=== PATIENT | female | born 1965 | race Caucasian/White ===

== ENCOUNTER 2017-10-15 14:01 | Emergency (ER) | payer MEDICAID ==
[~2017-10-15] VITALS: Ht 167.6 cm; Wt 74.0 kg
[~2017-10-15 14:01] MED LIST: AMOX-580 PO; CAPS60CR6 TP; GABA-532 PO
[2017-10-15 14:07] VITALS: BP 115/78
== END 2017-10-15 14:48 | disposition home or self-care (01) ==
LOC: ER 14:01
DX: Z02.1 Encounter for pre-employment examination (principal); Z90.710 Acquired absence of both cervix and uterus; Z98.890 Other specified postprocedural states; Z56.0 Unemployment, unspecified; Z88.6 Allergy status to analgesic agent; Z88.5 Allergy status to narcotic agent
CPT/HCPCS: 99281

== ENCOUNTER 2018-02-11 08:22 | Emergency (ER) | payer MEDICAID ==
[~2018-02-11] VITALS: Ht 167.6 cm; Wt 68.2 kg
[~2018-02-11 08:22] MED LIST changes: -AMOX-580 PO
[2018-02-11 08:24] VITALS: BP 115/73
[2018-02-11] MEDS ORDERED: ROBCFL PO (10:31)
[2018-02-11] MEDS ORDERED: TAM75C PO (10:31)
== END 2018-02-11 10:53 | disposition home or self-care (01) ==
LOC: ER 08:23
DX: B34.9 Viral infection, unspecified (principal); F17.200 Nicotine dependence, unspecified, uncomplicated; Z56.0 Unemployment, unspecified; Z90.710 Acquired absence of both cervix and uterus; Z88.6 Allergy status to analgesic agent; Z79.899 Other long term (current) drug therapy
CPT/HCPCS: 36415; 71045; 87502; 87503; 99284

== ENCOUNTER 2018-02-14 19:50 | Emergency (ER) | payer MEDICAID ==
[~2018-02-14] VITALS: Ht 167.6 cm; Wt 72.7 kg
[~2018-02-14 19:50] MED LIST changes: +ROBCFL PO; +TAM75C PO
[2018-02-14 20:04] VITALS: BP 126/65
== END 2018-02-14 21:17 | disposition home or self-care (01) ==
LOC: ER 19:50
DX: Z00.8 Encounter for other general examination (principal); Z90.710 Acquired absence of both cervix and uterus; Z98.890 Other specified postprocedural states; Z88.6 Allergy status to analgesic agent; Z88.5 Allergy status to narcotic agent; Z79.899 Other long term (current) drug therapy; Z79.2 Long term (current) use of antibiotics; Z56.0 Unemployment, unspecified
CPT/HCPCS: 99281

== ENCOUNTER 2020-01-18 09:17 | Emergency (ER) | payer MEDICAID ==
[~2020-01-18] VITALS: Ht 165.1 cm; Wt 80.7 kg
[~2020-01-18 09:17] MED LIST changes: -ROBCFL PO; -TAM75C PO
[2020-01-18 09:19] VITALS: BP 104/77
--- NOTE | 2020-01-18 11:05 | NUR ---
Attempted to call patient back for the third time, Called patients listed phone number and left a voice mail. Dr. Key aware.
== END 2020-01-18 11:09 | disposition left against medical advice (07) ==
LOC: ER 09:17
DX: T20.50XA Corrosion of first degree of head, face, and neck, unspecified site, initial encounter (principal); T22.50XA Corrosion of first degree of shoulder and upper limb, except wrist and hand unspecified site, initial encounter; T32.0 Corrosions involving less than 10% of body surface; Z53.21 Procedure and treatment not carried out due to patient leaving prior to being seen by health care provider; X08.8XXA Exposure to other specified smoke, fire and flames, initial encounter; Y93.89 Activity, other specified; Y92.89 Other specified places as the place of occurrence of the external cause; Y99.8 Other external cause status

== ENCOUNTER 2021-03-05 19:25 | Emergency (ER) | payer MEDICAID ==
[~2021-03-05] VITALS: Ht 162.6 cm; Wt 79.5 kg
[2021-03-05 19:37] VITALS: BP 127/84
[2021-03-05] MEDS ORDERED: ALBU6.7H9 INH (19:42)
[2021-03-05] MEDS ORDERED: BUDE180A INH (19:42)
== END 2021-03-05 20:31 | disposition home or self-care (01) ==
LOC: ER 19:25
DX: U07.1 COVID-19 (principal); J06.9 Acute upper respiratory infection, unspecified; R51.9 Headache, unspecified; F17.200 Nicotine dependence, unspecified, uncomplicated; Z90.710 Acquired absence of both cervix and uterus; Z98.890 Other specified postprocedural states; Z72.89 Other problems related to lifestyle; Z56.0 Unemployment, unspecified; Z88.6 Allergy status to analgesic agent; Z88.8 Allergy status to other drugs, medicaments and biological substances; Z79.899 Other long term (current) drug therapy
CPT/HCPCS: 36415; 99283; U0003; U0005

== ENCOUNTER 2022-01-11 18:10 | Emergency (ER) | payer MEDICAID ==
[~2022-01-11 18:10] MED LIST changes: +ALBU6.7H14 INH; +BUDE180A INH
== END 2022-01-11 21:22 | disposition left against medical advice (07) ==
LOC: ER 18:10
DX: H02.849 Edema of unspecified eye, unspecified eyelid (principal); Z53.21 Procedure and treatment not carried out due to patient leaving prior to being seen by health care provider

== ENCOUNTER 2022-09-26 07:12 | Emergency (ER) | payer MEDICAID ==
[~2022-09-26] VITALS: Ht 160 cm; Wt 82.4 kg
[2022-09-26 07:19] VITALS: TEMP 98.2
[2022-09-26 07:45] LABS: CLARITY,URINE CLEAR (Clear); COLOR,URINE YELLOW (Yellow); GLUCOSE, URINE NEGATIVE (Neg); KETONES,URINE NEGATIVE (Neg); LEUKOCYTE ESTERASE ,URINE NEGATIVE (Neg); NITRITES, URINE NEGATIVE (Neg); OCCULT BLOOD,URINE TRACE-INTACT (Neg); PROTEIN,URINE NEGATIVE (Neg)
[2022-09-26 07:48] LABS: UA COLLECTION TYPE CLN CATCH MIDSTREAM
[2022-09-26 07:49] LABS: BACTERIA,URINE NONE SEEN /HPF (Neg); MUCUS STRANDS FEW /LPF (Neg); RBC,URINE 0-2 /HPF (0-2); SQUAMOUS EPITHELIAL CELL,UR MANY /LPF (FEW); WBC,URINE 0-4 /HPF (0-4)
[2022-09-26 08:09] LABS: BASOPHILS % (AUTO) 0.5 % (0-1); EOSINOPHILS % (AUTO) 0.5 % (0-6); HEMATOCRIT 44.5 % (35.0-45.0); LYMPHOCYTES # (AUTO) 0.5 X10'3 (1.1-4.8); LYMPHOCYTES % (AUTO) 5.8 % (21-51); MEAN CORPUSCULAR HEMOGLOBIN 28.6 PG (27.0-31.0); MEAN CORPUSCULAR HGB CONC 33.8 g/dL (33.0-36.5); MEAN CORPUSCULAR VOLUME 84.7 FL (78-98); MEAN PLATELET VOLUME 7.7 FL (7.4-10.4); MONOCYTES # (AUTO) 0.5 X10'3 (0-0.9); MONOCYTES % (AUTO) 4.9 % (2-12); NEUTROPHILS # (AUTO) 8.3 X10'3 (1.8-7.7); NEUTROPHILS % (AUTO) 88.3 % (42-75); PLATELET COUNT 243 X10'3 (140-440); RED BLOOD COUNT 5.26 X10'6 (4.20-5.60); RED CELL DISTRIBUTION WIDTH 14.4 % (11.5-14.5); WHITE BLOOD COUNT 9.4 X10'3 (4.5-11.0)
[2022-09-26 09:38] LABS: ALANINE AMINOTRANSFERASE 21 U/L (12-78); ALBUMIN 3.6 G/DL (3.4-5.0); ALKALINE PHOSPHATASE 102 IU/L (46-116); ASPARTATE AMINO TRANSFERASE 13 U/L (10-37); BILIRUBIN,TOTAL 0.3 MG/DL (0.1-1.0); BLOOD UREA NITROGEN 15 MG/DL (7-18); BUN/CREATININE RATIO 13.9 (10.0-20.0); CALCIUM 8.9 MG/DL (8.5-10.1); CREATININE 1.08 MG/DL (0.40-0.90); GLUCOSE 129 MG/DL (70-104); LIPASE < 50 U/L (73-393); TOTAL CARBON DIOXIDE 22.2 MMOL/L (24-32); TOTAL PROTEIN 7.3 G/DL (6.4-8.2); eGFR 52 ML/MIN
[2022-09-26 09:43] LABS: ANION GAP 12 (8-16); CHLORIDE 105 MMOL/L (99-107); POTASSIUM 4.2 MMOL/L (3.5-5.1); SODIUM 139 MMOL/L (135-145)
[2022-09-26] MEDS ORDERED: iohexol 300mg/ml 100ml inj. ONE (14:44)
[2022-09-26] MEDS ORDERED: METR-159 PO (16:12)
[2022-09-26] MEDS ORDERED: CIPR-202 PO (16:12)
[2022-09-26] MEDS ORDERED: DICY10CA88 PO (16:13)
[2022-09-26] MEDS ORDERED: dicyclomine 10mg/ml 2ml ampule IM ONE (16:20)
[2022-09-26 16:48] VITALS: BP 144/94; PULSE 101; RESP 16; O2SAT 96
== END 2022-09-26 16:50 | disposition home or self-care (01) ==
LOC: ER 07:13
DX: K52.9 Noninfective gastroenteritis and colitis, unspecified (principal); R10.84 Generalized abdominal pain; F17.200 Nicotine dependence, unspecified, uncomplicated; Z88.6 Allergy status to analgesic agent; Z88.5 Allergy status to narcotic agent; Z79.899 Other long term (current) drug therapy; Z90.710 Acquired absence of both cervix and uterus
CPT/HCPCS: 36415; 74177; 80053; 81001; 83605; 83690; 85025; 96372; 99285; J0500; J3490; Q9967